=== PATIENT | female | born 1975 | race Caucasian/White ===

== ENCOUNTER 2017-08-28 10:38 | Emergency (ER) | payer OTHER ==
[~2017-08-28] VITALS: Ht 144.8 cm; Wt 67.6 kg
[~2017-08-28 10:38] MED LIST: ACETAMINOPHEN325 M1 PO; ALMACONE CHEWA1 EACH PO; ALMACONE LIQUI355 ML PO; APRI1 EACH PO; BACTROBAN CREAM30 GM; BENADRYL25 MG PO; BONIVA150 MG PO; CALCIUM 500 +1 EAC4 PO; CELEXA 20 MG TA20 M1 PO; CELEXA 20 MG TA20 MG PO; CELEXA40 MG PO; CICLODAN6.6 ML; CLOMIPRAMINE HC25 M1; COLACE 100 MG100 MG PO; DEPAKOTE ER500 MG PO; DEPAKOTE500 MG PO; DIFLUCAN150 MG; ERYTHROMYCIN E3.5 G2 OP; ESCITALOPRAM OX20 MG PO; FLONASE 0.05%50 MCG NASAL; HYDROCODON-ACE1 EAC7 PO; IBUPROFEN 800800 M1 PO; LAC-HYDRIN FIV113 GM TP; LAC-HYDRIN225 GM; LEXAPRO20 MG PO; MAALOX525 MG/15 PO; MELATONIN3 MG PO; MIRALAX17 G1 PO; MIRALAX17 GM PO; MIRALAX255 GM PO; MOM; MOM PO; NYSTATIN 100,0015 G1 TP; NYSTATIN 1100000 U/M; OMEPRAZOLE 20 M20 MG PO; ONDANSETRON HCL4 M2 PO; OYSTER SHELL 51 EACH PO; PANTOPRAZOLE SO40 M1 PO; POLYOX WSR-3011 GM MC; PROTONIX40 M1 PO; ROBITUSSIN DM T10 ML PO; SEROQUEL 25 MG25 M1; SEROQUEL 50 MG50 MG PO; SILTUSSIN DM C118 ML PO; SILVADENE20 GM TOP; SUDAFED 12 HOU120 MG PO; SUDAFED 12 HR120 MG PO; TRIPLE ANTIBIO1 EAC1 TP; XANAX 0.25 MG0.25 MG PO; ZOFRAN ODT4 MG DISSOLVE
== END 2017-08-28 13:44 | disposition home or self-care (01) ==
LOC: ER 10:38
DX: J06.9 Acute upper respiratory infection, unspecified (principal); I10 Essential (primary) hypertension; E78.5 Hyperlipidemia, unspecified; Z86.59 Personal history of other mental and behavioral disorders